=== PATIENT | male | born 1970 | race Caucasian/White ===

== ENCOUNTER → 2016-08-31 | Day surgery (SDC) | payer MEDICAID ==
[~2016-08-31] VITALS: Ht 167.6 cm; Wt 80.9 kg
[~2016-08-31] MED LIST: *ONDANSETRON 4 MG VIAL PERIprocedural Use ONLY ONE; *morphine SULFATE 8 MG/ML PERIprocedure ONLY ONE; AMLO10TA2 PO; ASPI-110 PO; BUME1TAB28 PO; BUPIVACAINE HCL PF 0.5% 30 ML VIAL ONE; BUTA1CAP PO; CHLORHEXIDINE GLUCONATE 2 % 1 PACK (2 CLOTHS) TOPICAL PRN; CLON.1 PO; CLON.5 PO; DO NOT ADM ANY ANTICOAGULANT DRUGS PRN; FAMO1TAB73 PO; FLUT1SPR5 EACH NARE; GELFOAM SIZE 100 ONE; GLIM4TAB PO; HEPA1000 IV; HEPARIN SODIUM - IV 10,000 UNITS/10 ML VIAL ONE; HEPARIN SODIUM - SQ 10,000 UNITS/ML VIAL ONE; LACTATED RINGER'S 1000 ML IV PRN; LANTUS2P SQ; LIPI40TA PO; LISI40TA PO; LORA-361 PO; METOPROLOL TARTRATE 25 MG TAB PO PRN; MONT10TA2 PO; NEOSTIGMINE 3 MG/3 ML SYR IV ONE; NEUR100C PO; OMEG100037 PO; ONDANSETRON HCL 4 MG/2 ML VIAL IV PUSH ONE; PHENYLEPH/NS 1000 MCG/10 ML SYR IV ONE; POVIDONE IODINE 5% (ANTISEPSIS KIT) 4 APPLICATIONS EACH NARE PRN; PROPOFOL 200 MG/20 ML AMP IV ONE; PROS5TAB PO; SODIUM CHLOR 0.9% 250 ML INJ 250 ML ONE; SODIUM CHLORID 0.9% 500 ML IV PRN; TAMS5CAP PO; TERA5CAP3 PO; THROMBIN (TOPICAL) 20,000 UNIT SPRAY KIT OTHER ONE; THROMBIN (TOPICAL) 5,000 UNIT VIAL ONE; TOPR100T PO; VANCOMYCIN HCL 1000 MG VIAL ONE; VITA100T15 PO; ePHEDrine/NS 25 MG/5 ML SYR IV ONE; fentaNYL CITRATE 250 MCG/5 ML AMP ONE; oxyCODONE/ACETAMINOPHEN 5 MG/325 MG TAB PO PRN
--- NOTE | 2016-08-31 10:12 | RADRPT ---
EXAM DATE/TIME: 08/31/2016 10:51 [place] COMPARISON: No previous studies available for comparison. INDICATIONS : Pre op to rule out pnuemonia, pnuemothorax or any communicable diseases. MEDICAL HISTORY : None. SURGICAL HISTORY : None. ENCOUNTER: Initial ACUITY: 1 day PAIN SCORE: 0/10 LOCATION: Bilateral chest FINDINGS: Portable AP view of the chest demonstrates a normal-sized cardiac silhouette. Right IJ line distal ti p is in the SVC. Right hemidiaphragm is elevated. There is mild atelectasis at the right lung base. N o pleural effusion, airspace consolidation, or pneumothorax identified. There is a calcified granulom a in the right midlung zone measuring approximately 5 mm. The bones and soft tissues demonstrate no a cute finding. CONCLUSION: No acute cardiopulmonary abnormality is identified. David Moss MD on August 31, 2016 at 10:10 Board Certified Radiologist. This report was verified electronically.
[2016-08-31 10:54] LABS: BLOOD, URINE TRACE (NEG); GLUCOSE,URINE 1000 mg/dL (NEG); HYALINE CAST, URINE 1 /lpf (RARE); KETONE, URINE NEG (NEG); NITRITE,URINE NEG (NEG); URINE COLOR LIGHT-YELLOW (YELLW/STRAW)
[2016-08-31 10:55] LABS: COMMENT (UR) CULT NOT INDICATED; CULTURE IF INDICATED CULT NOT INDICATED
[2016-08-31 10:55] LABS: AUTOMATED NEUTROPHIL # 4.4 TH/MM3 (1.8-7.7); BASOPHIL % 0.2 % (0.0-2.0); EOSINOPHIL # 0.3 TH/MM3 (0-0.4); EOSINOPHIL % 4.6 % (0.0-4.0); HEMATOCRIT 41.8 % (39.0-51.0); HEMO FLAGS DIFF FINAL; LYMPH % 23.6 % (9.0-44.0); LYMPHOCYTE # 1.7 TH/MM3 (1.0-4.8); MEAN CELL VOLUME 89.4 FL (80.0-100.0); MEAN CORPUSCULAR HEMOGLOBIN 28.8 PG (27.0-34.0); MEAN CORPUSCULAR HGB CONC 32.3 % (32.0-36.0); MONO % 11.2 % (0.0-8.0); NEUT % 60.4 % (16.0-70.0); PLATELET COUNT 159 TH/MM3 (150-450); RED BLOOD COUNT 4.67 MIL/MM3 (4.50-5.90); RED CELL DISTRIBUTION WIDTH 16.2 % (11.6-17.2); WHITE BLOOD COUNT 7.3 TH/MM3 (4.0-11.0)
[2016-08-31 10:58] LABS: APTT (PATIENT) 27.3 SEC (24.3-30.1); PROTHROMBIN TIME - PATIENT 11.2 SEC (9.8-11.6)
[2016-08-31 11:05] LABS: POTASSIUM 4.1 MEQ/L (3.5-5.1)
[2016-08-31] MEDS: INSULIN HUMAN REGULAR 1,000 UNITS/10 ML VIAL SQ PRN ×2 (11:05→11:48)
--- NOTE | 2016-08-31 11:29 | EKG ---
Date Performed: 08/31/2016 Time Performed: 09:42:08 PTAGE: 46 years EKG: Sinus rhythm POSSIBLE ANTERIOR MYOCARDIAL INFARCTION , OF INDETERMINATE AGE ABNORMAL ECG NO PREVIOUS TRACING DOCTOR: Alex Hanna Interpretating Date/Time 08/31/2016 11:29:09
--- NOTE | 2016-08-31 15:01 | HHI.PR ---
Immediate Post Op Note Procedure Date: Aug 31, 2016 Pre Op Diagnosis: ESRD, need for HD access Post Op Diagnosis: ESRD, need for HD access Surgeon: Franck Flores Allied Health Instructor(s): none Procedure: L brachiobasilic AVF (1st stage) Findings: 4mm artery, 3mm vein Additional Information: good Doppler signals at wrist at conclusion of case Complications: none apparent Specimen(s) removed: none Estimated blood loss: 20 mL Anesthesia: General Drains: None Fluids: 200 IVF Patient to: PACU Patient Condition: Good Date/Time of Procedure: SEE SURGICAL CARE RECORD Franck Flores MD Aug 31, 2016 15:01
[2016-08-31 16:40] VITALS: BP 164/81; PULSE 68; RESP 18; TEMP 97.8; O2SAT 96
--- NOTE | 2016-09-01 06:04 | MP ---
cc: GEOVANNA FLORES MD DATE OF SURGERY 08/31/2016 PREOPERATIVE DIAGNOSIS End-stage renal disease. Need for dialysis access. POSTOPERATIVE DIAGNOSIS End-stage renal disease. Need for dialysis access. PROCEDURE Left brachiobasilic arteriovenous fistula (first stage). ATTENDING SURGEON Geovanna Flores MD FOREST TECHNOLOGY PROFESSOR . ANESTHESIA General. INDICATIONS Mr. Carlson is a 46-year-old gentleman with end-stage renal disease who is currently dialyzing through a right chest catheter. He is taken to the operating room for surgical access. A preoperative imaging assessed his left basilic vein as his best conduit. DESCRIPTION OF PROCEDURE Informed consent was obtained from the patient. He was taken to the operating room and placed supine on the operating room table. An appropriate time-out was taken to identify the patient, the operative site and planned procedure. 1 gram of vancomycin was initiated prior to the skin incision, will be discontinued after a single preoperative dose. Vancomycin was chosen because of the patient's end-stage renal disease. Everyone in the room agreed with the time-out and we proceeded. Incision was made in the medial aspect of the upper arm, carried down through the subcutaneous tissue with electrocautery. The basilic vein was identified and dissected free for several cm, all branches ligated with 3-0 silk. The brachial artery was identified on the medial aspect of this incision, dissected free for several cm. The basilic vein was marked for orientation, clamped at a right angle distally, transected and the distal end was oversewn with 3-0 silk. The vein was distended and clamped with Yordan bulldog clamp. The patient was systemically heparinized with 3000 units of IV heparin. Proximal and distal control of the brachial artery was obtained with profunda clamps and a longitudinal arteriotomy was made with a 11 blade, continued with [place] scissors. The vein was spatulated and sewn end-to-side with running 6-0 Prolene sutures. At the completion, the wound was noted to be hemostatic. There was a nice thrill in the vein and a Doppler signal in the wrist. The wound was infiltrated with Marcaine and closed with 2-0 Polysorb, 3-0 Polysorb and 4-0 Monocryl. Sponge and needle counts were correct at the end of the case. I was present and scrubbed and performed the entire procedure. MD VY Wall/ANGEL /3:05 PM /5:48 AM
== END | disposition home or self-care (01) ==
LOC: HCVO 08:54 → EDUNIT# 13:00
PROVIDERS: ATTEND Surgery
DX: N18.6 End stage renal disease (principal); I12.0 Hypertensive chronic kidney disease with stage 5 chronic kidney disease or end stage renal disease; E11.9 Type 2 diabetes mellitus without complications
CPT/HCPCS: 01844; 36819; 71010; 80048; 81001; 82948; 85025; 85610; 85730; 86850; 86900; 86901; 93005; J1644; J1815; J2270; J2370; J2405; J2710; J3010; J3370; J7040; J7050

== ENCOUNTER 2016-10-19 05:15 | Observation (INO) | payer MEDICAID ==
[~2016-10-19] VITALS: Ht 167.6 cm; Wt 80.5 kg
[~2016-10-19 05:15] MED LIST changes: -*ONDANSETRON 4 MG VIAL PERIprocedural Use ONLY ONE; -*morphine SULFATE 8 MG/ML PERIprocedure ONLY ONE; -BUPIVACAINE HCL PF 0.5% 30 ML VIAL ONE; -CHLORHEXIDINE GLUCONATE 2 % 1 PACK (2 CLOTHS) TOPICAL PRN; -DO NOT ADM ANY ANTICOAGULANT DRUGS PRN; -GELFOAM SIZE 100 ONE; -HEPARIN SODIUM - IV 10,000 UNITS/10 ML VIAL ONE; -HEPARIN SODIUM - SQ 10,000 UNITS/ML VIAL ONE; -LACTATED RINGER'S 1000 ML IV PRN; -METOPROLOL TARTRATE 25 MG TAB PO PRN; -NEOSTIGMINE 3 MG/3 ML SYR IV ONE; -ONDANSETRON HCL 4 MG/2 ML VIAL IV PUSH ONE; -PHENYLEPH/NS 1000 MCG/10 ML SYR IV ONE; -POVIDONE IODINE 5% (ANTISEPSIS KIT) 4 APPLICATIONS EACH NARE PRN; -PROPOFOL 200 MG/20 ML AMP IV ONE; -SODIUM CHLOR 0.9% 250 ML INJ 250 ML ONE; -SODIUM CHLORID 0.9% 500 ML IV PRN; -THROMBIN (TOPICAL) 20,000 UNIT SPRAY KIT OTHER ONE; -THROMBIN (TOPICAL) 5,000 UNIT VIAL ONE; -VANCOMYCIN HCL 1000 MG VIAL ONE; -ePHEDrine/NS 25 MG/5 ML SYR IV ONE; -fentaNYL CITRATE 250 MCG/5 ML AMP ONE; -oxyCODONE/ACETAMINOPHEN 5 MG/325 MG TAB PO PRN
--- NOTE | 2016-10-19 07:23 | HHI.HP ---
History of Present Illness Chief Complaint: need for 2nd stage L UE AVF History of Present Illness 46 yo male with ESRD currently getting HD MWF via R chest catheter. Had L UE brachiobasilic AVF (1st stage) on August 31. Presents for elective 2nd stage. Duplex on Tue showed excellent diameters without any stenoses. Past/Family/Social History Past Medical History ESRD pneumonia HTN XOL DM Past Surgical History L UE brachiobasilic AVF B LE amputations Family History NC Home Medications Reported Medications Famotidine (Pepcid)40 Mg Tab40 Mg PO HS #30 TAB Ref 0 08/31/16 Terazosin 5 Mg Cap5 Mg PO HS #30 CAP Ref 0 08/31/16 Tamsulosin (Flomax)0.4 Mg Cap0.4 Mg PO HS #30 CAP Ref 0 08/31/16 Montelukast (Singulair)10 Mg Tab10 Mg PO HS #30 TAB Ref 0 08/31/16 Metoprolol Succinate ER 24 HR (Toprol XL)100 Mg Uen199 Mg PO DAILY #30 TAB Ref 0 08/31/16 Loratadine (Claritin)10 Mg Tab10 Mg PO DAILY Ref 0 08/31/16 Lisinopril 40 Mg Tab40 Mg PO DAILY #30 TAB Ref 0 08/31/16 Glimepiride 4 Mg Tab4 Mg PO AC BREAKFAST #60 TAB Ref 0 08/31/16 Gabapentin (Neurontin)100 Mg Qxg049 Mg PO TID #90 CAP Ref 0 08/31/16 Fluticasone Nasal [place] (Flonase Nasal [place])50 Mcg/Act Spray50 Mcg EACH NARE BID #1 BOTTLE Ref 0 08/31/16 [place]-3 Fatty Acids (Fish Oil 1000 mg)1 Cap Cap1,000 Cap PO DAILY 08/31/16 Finasteride (Proscar)5 Mg Tab5 Mg PO DAILY #30 TAB Ref 0 Do not crush. 08/31/16 Cyanocobalamin (Vitamin B12)100 Mcg Mph556 Mcg PO DAILY #1 BOTTLE 08/31/16 Clonidine (Catapres)0.1 Mg Tab0.1 Mg PO BID #60 TAB Ref 0 08/31/16 Clonazepam (Klonopin)0.5 Mg Tab0.5 Mg PO HS #60 TAB Ref 0 08/31/16 Rukryczxav-Jgfvxwvieffpk-Ztlhazlc (Fioricet)50-300-40 Mg Cap1 Cap PO Q4H PRN ( HEADACHE) Ref 0 08/31/16 Bumetanide (Bumex)2 Mg Tab2 Mg PO DAILY Ref 0 08/31/16 Atorvastatin (Lipitor)40 Mg Tab40 Mg PO HS #30 TAB Ref 0 08/31/[address] (Aspirin 81)81 Mg Tabdr81 Mg PO DAILY Ref 0 08/31/16 Amlodipine 10 Mg Tab10 Mg PO DAILY #30 TAB Ref 0 08/31/16 Heparin Sodium (Porcine) (Heparin Sodium)1,000 Unit/Ml [id number] Units IV 08/31/16 Insulin Glargine Inj (Lantus Inj)1,000 Unit/10 Ml Vial29 Units SQ HS Ref 0 08/31/16 Coded Allergies: No Known Allergies (Unverified , 08/31/16) Review of Systems Constitutional: DENIES: Fever, Chills, Change in appetite Respiratory: DENIES: Shortness of breath Physical Exam Neuro: Resting comfortably, no distress, pleasant and conversant (Latvian only with limited Palauan) HEENT: NC/AT; anicteric sclera Neck: no JVD Heart: reg rate Lungs: nonlabored breathing Vascular: L UE with healed incision; + thrill. Good posting clerk strength pending U/S from Tue reviewed again this morning. Assessment and Plan Plan Needs elective 2nd stage access; no interval change in history that would preclude OR 1. labs pending 2. To OR 3. Arm marked 4. POA with HD tomorrow, then D/C after HD Franck Flores MD October 19, 2016 07:23
[2016-10-19 07:29] VITALS: BP 158/79; PULSE 72; RESP 18; TEMP 98.5; O2SAT 95
[2016-10-19] MEDS ORDERED: INSULIN HUMAN REGULAR 1,000 UNITS/10 ML VIAL ONE (07:56)
[2016-10-19] MEDS ORDERED: METOPROLOL TARTRATE 25 MG TAB ONE (07:57)
[2016-10-19 08:07] LABS: AUTOMATED NEUTROPHIL # 4.3 TH/MM3 (1.8-7.7); BASOPHIL % 0.3 % (0.0-2.0); EOSINOPHIL # 0.2 TH/MM3 (0-0.4); EOSINOPHIL % 2.8 % (0.0-4.0); HEMATOCRIT 34.6 % (39.0-51.0); HEMO FLAGS DIFF FINAL; LYMPH % 24.2 % (9.0-44.0); LYMPHOCYTE # 1.7 TH/MM3 (1.0-4.8); MEAN CELL VOLUME 88.3 FL (80.0-100.0); MEAN CORPUSCULAR HEMOGLOBIN 28.7 PG (27.0-34.0); MEAN CORPUSCULAR HGB CONC 32.5 % (32.0-36.0); MONO % 10.8 % (0.0-8.0); NEUT % 61.9 % (16.0-70.0); PLATELET COUNT 139 TH/MM3 (150-450); RED BLOOD COUNT 3.91 MIL/MM3 (4.50-5.90); RED CELL DISTRIBUTION WIDTH 14.9 % (11.6-17.2)
[2016-10-19 08:13] LABS: INTERNATIONAL NORMALIZED RATIO 1.4 RATIO
[2016-10-19] MEDS ORDERED: SODIUM CHLORIDE 0.9% FLUSH 10 ML FLUSH IV FLUSH PRN ×2 (08:15→16:00)
[2016-10-19] MEDS ORDERED: DEXTROSE 50% IN WATER 50 ML VIAL(D50) IV PRN (08:30)
[2016-10-19] MEDS ORDERED: GLUCAGON 1 MG/ML VIAL OTHER PRN (08:30)
[2016-10-19 08:33] LABS: BICARBONATE 28.9 MEQ/L (21.0-32.0); POTASSIUM 4.4 MEQ/L (3.5-5.1)
[2016-10-19] MEDS ORDERED: FATTY ACIDS PO SCH (09:00)
[2016-10-19] MEDS ORDERED: OMEGA PO SCH (09:00)
[2016-10-19] MEDS ORDERED: THROMBIN (TOPICAL) 20,000 UNIT SPRAY KIT ONE (09:14)
[2016-10-19] MEDS ORDERED: VANCOMYCIN HCL 1000 MG VIAL ONE (09:15)
[2016-10-19] MEDS ORDERED: HEPARIN SODIUM - IV 10,000 UNITS/10 ML VIAL ONE (09:15)
[2016-10-19] MEDS ORDERED: BUPIVACAINE/EPINEPHRINE 0.25% PF 10 ML VIAL ONE (09:15)
[2016-10-19] MEDS ORDERED: GABAPENTIN 100 MG CAP PO SCH (10:00)
[2016-10-19] MEDS: FINASTERIDE 5 MG TAB PO SCH (10:00)
[2016-10-19] MEDS: CYANOCOBALAMIN 100 MCG TAB PO SCH (10:00)
[2016-10-19] MEDS: LORATADINE 10 MG TAB PO SCH (10:00)
[2016-10-19] MEDS: cloNIDine HCL 0.1 MG TAB PO SCH ×2 (10:00→21:29)
[2016-10-19] MEDS ORDERED: BUTALBITAL ACETAMINOPHEN CAFFEINE PO PRN (10:00)
[2016-10-19] MEDS: GABAPENTIN 100 MG CAP PO SCH ×2 (10:00→21:29)
[2016-10-19] MEDS ORDERED: PROTAMINE SULFATE 50 MG/5 ML VIAL ONE (10:42)
--- NOTE | 2016-10-19 11:12 | HHI.PR ---
Immediate Post Op Note Procedure Date: October 19, 2016 Pre Op Diagnosis: ESRD, need for HD access Post Op Diagnosis: ESRD, need for HD access Surgeon: Franck Flores Windows Admin(s): Aaron Barron Procedure: L brachiobasilic AVF Findings: 5-6mm vein; Additional Information: + Doppler signal in wrist at end of case Complications: none apparent Specimen(s) removed: none Estimated blood loss: 30mL Anesthesia: LMA Drains: NICANOR Fluids: 300 mL x'oid IVF Patient to: PACU Patient Condition: Good Implant/Devices: SEE IMPLANT LOG (if applicable) Date/Time of Procedure: SEE SURGICAL CARE RECORD Franck Flores MD October 19, 2016 11:12
[2016-10-19] MEDS ORDERED: DO NOT ADM ANY ANTICOAGULANT DRUGS PRN (11:20)
[2016-10-19] MEDS ORDERED: *morphine SULFATE 8 MG/ML PERIprocedure ONLY ONE (11:32)
[2016-10-19] MEDS ORDERED: *HYDROmorphone PF 1 MG VIAL PERIprocedural Use ONLY ONE ×2 (11:51→12:43)
[2016-10-19] MEDS ORDERED: PROPOFOL 200 MG/20 ML AMP IV ONE (12:00)
[2016-10-19] MEDS ORDERED: ePHEDrine/NS 25 MG/5 ML SYR IV ONE (12:00)
[2016-10-19] MEDS: INSULIN NovoLIN REGULAR SUPPLEMENTAL SCALE SQ SCH ×3 (12:00→21:24)
[2016-10-19] MEDS ORDERED: PHENYLEPH/NS 1000 MCG/10 ML SYR IV ONE (12:00)
[2016-10-19] MEDS ORDERED: ONDANSETRON HCL 4 MG/2 ML VIAL IV PUSH ONE (12:00)
[2016-10-19] MEDS: METOPROLOL SUCCINATE 50 MG EXTENDED RELEASE TAB PO SCH (13:00)
[2016-10-19] MEDS: LISINOPRIL 20 MG TAB PO SCH (13:00)
[2016-10-19] MEDS: BUMETANIDE 1 MG TAB PO SCH (13:00)
[2016-10-19] MEDS: FAMOTIDINE 20 MG TAB PO SCH ×2 (13:00→21:31)
[2016-10-19] MEDS: ASPIRIN 81 MG CHEW TAB PO SCH (13:00)
[2016-10-19] MEDS ORDERED: *PROMETHAZINE 25 MG/ML VIAL PERIprocedural use ONLY ONE (13:35)
[2016-10-19] MEDS ORDERED: SODIUM CHLOR 0.9% 1000 ML INJ 1,000 ML IV PRN ×3 (15:57)
[2016-10-19] MEDS: HYDROmorphone HCL 2 MG TAB PO PRN ×2 (15:58→21:31)
[2016-10-19] MEDS ORDERED: GELATIN 12 MM/7 MM FOAM TOP PRN (16:00)
[2016-10-19] MEDS ORDERED: ALBUMIN HUMAN 25% 25 GM/100 ML BAGP IV PRN (16:00)
[2016-10-19] MEDS ORDERED: diphenhydrAMINE HCL 25 MG CAP PO PRN (16:00)
[2016-10-19] MEDS ORDERED: EPOETIN ALFA 4,000 UNITS/ML VIAL IV PRN (16:00)
[2016-10-19] MEDS ORDERED: cloNIDine HCL 0.1 MG TAB PO PRN (16:00)
[2016-10-19] MEDS ORDERED: NITROGLYCERIN 0.4 MG SL 25 TABS/BTL SL PRN (16:00)
[2016-10-19] MEDS ORDERED: ACETAMINOPHEN 325 MG TAB PO PRN (16:00)
[2016-10-19] MEDS ORDERED: ONDANSETRON HCL 4 MG/2 ML VIAL IV PRN (16:00)
[2016-10-19] MEDS ORDERED: GENTAMICIN SULFATE (DIALYSIS USE ONLY) 20 MG/2 ML VIAL IV PRN (16:00)
[2016-10-19] MEDS ORDERED: HEPARIN SODIUM - IV 10,000 UNITS/10 ML VIAL PRN (16:00)
[2016-10-19] MEDS ORDERED: HEPARIN SODIUM - IV 10,000 UNITS/10 ML VIAL IVF PRN (16:00)
[2016-10-19] MEDS ORDERED: MANNITOL 12.5 GM/50 ML VIAL IV PRN (16:00)
--- NOTE | 2016-10-19 17:26 | MB ---
cc: JENN BRAXTON MD DATE OF CONSULTATION 10/19/16 REASON FOR CONSULTATION End-stage renal disease on hemodialysis for management. HISTORY OF PRESENT ILLNESS This is a 46-year-old male with past medical history of hypertension, diabetes mellitus, chronic anemia, end-stage renal disease on hemodialysis three times per week who was admitted for AV fistula surgery. I was called to see the patient for management of dialysis. The patient does not speak American and is not a very good historian. Most of the history was taken from the patient's chart, according to which he was admitted by Dr. Flores for left arm AV fistula which was done this morning and he is kept here now for observation. The patient has some pain at the site of the fistula. He has left brachial basilic AV fistula done and currently has a drain at the site of the fistula surgery. He denies any shortness of breath. He is with nasal cannula. No nausea or vomiting. PAST MEDICAL HISTORY 1. Hypertension, 2. Diabetes mellitus, 3. Chronic anemia, 4. Peripheral vascular disease, 5. End-stage renal disease on hemodialysis three times per week. PAST SURGICAL HISTORY 1. Bilateral below-knee amputation 2. Left arm AV fistula done today. REVIEW OF SYSTEMS The patient denies any headache, dizziness or blurring of vision. No history of fever. No sore throat. No shortness of breath or chest pain. No nausea or vomiting, no abdominal pain. He has some pain in the left arm at the site of the fistula. SOCIAL HISTORY The patient lives in [place] and came here for the surgery. FAMILY HISTORY Not available. ALLERGIES NO KNOWN DRUG ALLERGIES. MEDICATIONS Currently he is on for following medication 1. Famotidine 10 mg b.i.d. 2. Clonidine 0.1 mg b.i.d. 3. Gabapentin 100 mg b.i.d. 4. Aspirin 81 mg daily 5. Norvasc 10 mg once a day. 6. Bumex 2 mg daily. 7. Vitamin B12 100 mcg once a day 8. Proscar 5 mg daily. 9. Claritin 10 mg once a day. 10. Toprol 100 mg daily. 11. Lisinopril 40 mg once a day. 12. Lipitor 40 mg q.h.s. 13. Klonopin 0.5 mg q.h.s. 14. Singulair 10 mg q.h.s. 15. Flomax 0.4 mg q.h.s. 16. Hytrin 5 mg q.h.s. 17. Heparin 5000 units subcu q. 8-hour. 18. Insulin sliding scale, 19. Percocet as needed. 20. Roxicodone as needed. 21. Dilaudid as needed. PHYSICAL EXAMINATION GENERAL: The patient is awake, alert. He is not in acute distress. VITAL SIGNS: Last blood pressure 157/74, temperature 98.2, oxygen saturation 99% on 2 liters nasal cannula. HEENT: Pupils equally reacting to light. Nonicteric sclerae, conjunctivae pale. NECK: Supple. JVD is not elevated. LUNGS: The patient has bilateral good air entry with occasional wheezing. HEART: S1, S2 regular rhythm. ABDOMEN: Soft, lax. There is no tenderness. Bowel sounds positive. EXTREMITIES: His left arm has AV fistula surgery with drain in place and has good bruit. Left hand is a little bit swollen, but there is no pain or decreased temperature. LABORATORY DATA WBC count is 7.0, hemoglobin 11.2, platelet count of 139. Sodium 136, potassium 4.4, chloride 97, bicarb 28.9, BUN 27, creatinine 4.7, glucose 345, INR is 1.4. Urinalysis showing protein of 300. IMAGING STUDIES The patient had a chest x-ray done on 08/31 which shows lung robles clear. ASSESSMENT/PLAN 1. End-stage renal disease on hemodialysis. 2. Post stain fistula surgery 3. Diabetes mellitus uncontrolled. 4. Hypertension 5. History of hyperlipidemia. The patient has AV fistula surgery done. He has been on hemodialysis Tuesday, Tuesday and Tuesday. His labs are reviewed. There is no urgent need for dialysis today. I will arrange for his hemodialysis tomorrow. We will remove 2-3 liters. I will also give him Epogen at 4000 with dialysis. If he is stable possibly he will be discharged tomorrow. Thank you for the consultation and I will follow the patient while he is in the hospital. MD KELLI Reddy/ /3:56 PM /5:07 PM
[2016-10-19 17:28] LABS: BICARBONATE 29.7 MEQ/L (21.0-32.0); POTASSIUM 4.6 MEQ/L (3.5-5.1)
[2016-10-19 21:00] VITALS: BP 149/71; PULSE 73; RESP 17; TEMP 95.9; O2SAT 100
[2016-10-19] MEDS ORDERED: TERAZOSIN HCL 5 MG CAP PO SCH (21:00)
[2016-10-19] MEDS ORDERED: ATORVASTATIN 40 MG TAB PO SCH (21:00)
[2016-10-19] MEDS ORDERED: MONTELUKAST SODIUM 10 MG TAB PO SCH (21:00)
[2016-10-19] MEDS ORDERED: TAMSULOSIN HCL 0.4 MG CAP PO SCH (21:00)
[2016-10-19] MEDS ORDERED: clonazePAM 0.5 MG TAB PO SCH (21:00)
--- NOTE | 2016-10-19 22:50 | MP ---
cc: GEOVANNA FLORES MD DATE OF SURGERY 10/19/16 PREOPERATIVE DIAGNOSIS End-stage renal disease, needs dialysis access. POSTOPERATIVE DIAGNOSIS End-stage renal disease, needs dialysis access. PROCEDURE Left upper extremity brachial basilic arteriovenous fistula SURGEON Mya Flores MD REPORTS ANALYST Dewayne Barron ANESTHESIA General. INDICATIONS Mr. Monroe is a 46 year old gentleman with end-stage renal disease who is currently dialyzing Mondays, Tuesday and Fridays through a right tunnel chest catheter. He had a left brachiobasilic first stage arteriovenous fistula and this has matured. He is taken to the operating room for second stage. Intraoperatively, the fistula was transected, transposed and reanastomosed to brachial artery. PROCEDURE IN DETAIL Informed consent was obtained from the patient and he was taken to the operating room and placed supine on the operating table and an appropriate time out was taken to ensure the patient's identity, the operative site and the planned procedure. One gram of visual acuity was initiated prior to skin incision, will be discontinued after a single preoperative dose. Vancomycin was chosen because of the patient's end-stage renal disease. Everyone in the room agreed with the time out and we proceeded. After placement of LMA, his left arm was prepped and draped and incision was made on the medial side of the distal upper arm and carried down to subcutaneous tissue with electrocautery. Basilic vein was identified and dissected free from near the anastomosis back to the axillary vein. Side branches were ligated with 3-0 silk. The vein was marked for orientation, clamped distally, transected and distal end was ligated with 3-0 silk. A Yordan bulldog was placed in the proximal aspect and the curved tunnel was created on the anterior aspect of the arm and the vein was tunneled through this, taking caution not to twist it. The brachial artery was identified in the medial aspect of the incision dissected free for several centimeters. The patient was systemically heparinized with 3000 units of IV heparin. Proximal and distal control of branchial artery were obtained with profunda clamps and a longitudinal arteriotomy was made with an 11 blade, extended with [place] scissors. The vein was cut to an appropriate length, spatulated and sewn end to side to the brachial artery with running 5-0 Prolene suture. At the completion it was flushed, noted to be hemostatic. Clamps were released. There was a nice thrill in the fistula and a Doppler signal in the wrist. The heparin was reversed with protamine. The wound was made hemostatic with Surgicel and spray thrombin. The wound was infiltrated with 0.5% Marcaine with epinephrine and the 10 flat [place] drain was placed through a separate stab incision and secured to the skin with a 2-0 nylon. The wound was then closed with 2-0 Polysorb, 3-0 Polysorb and 4-0 Monocryl. The sponge and needle counts were correct at the end of the case. I was present and scrubbed and performed the entire procedure. MD VY Wall/ /11:18 AM /10:37 PM MTDD
[2016-10-20] VITALS: BP 130/68; PULSE 71; RESP 17; TEMP 96.8; O2SAT 100
[2016-10-20] MEDS: HEPARIN SODIUM - SQ 10,000 UNITS/ML VIAL SQ SCH ×2 (05:28→15:16)
[2016-10-20] MEDS: HYDROmorphone HCL 2 MG TAB PO PRN ×3 (05:29→15:16)
[2016-10-20 05:46] LABS: HEMATOCRIT 35.4 % (39.0-51.0); MEAN CELL VOLUME 90.2 FL (80.0-100.0); MEAN CORPUSCULAR HEMOGLOBIN 29.3 PG (27.0-34.0); MEAN CORPUSCULAR HGB CONC 32.5 % (32.0-36.0); PLATELET COUNT 125 TH/MM3 (150-450); RED BLOOD COUNT 3.92 MIL/MM3 (4.50-5.90); RED CELL DISTRIBUTION WIDTH 15.7 % (11.6-17.2); REVIEW FLAG FINAL; WHITE BLOOD COUNT 8.9 TH/MM3 (4.0-11.0)
[2016-10-20] MEDS: INSULIN NovoLIN REGULAR SUPPLEMENTAL SCALE SQ SCH (06:15)
[2016-10-20 06:25] LABS: BICARBONATE 26.3 MEQ/L (21.0-32.0); POTASSIUM 4.5 MEQ/L (3.5-5.1)
--- NOTE | 2016-10-20 07:20 | PD.VS.PN ---
Subjective POD #: 1 Procedure(s): L brachiobasilic AVF Subjective/Hospital Course no problems overnight; pain controlled Objective Vitals/I&O Date Time Temp Pulse Resp B/P Pulse Ox O2 Delivery O2 Flow Rate FiO2 10/20/16 00:00 96.8 71 17 130/68 100 10/19/16 21:00 95.9 73 17 149/71 100 10/19/16 18:42 Nasal Cannula 2.00 10/19/16 13:30 98.0 74 14 148/67 96 Nasal Cannula 2 10/19/16 13:15 71 15 163/78 95 Nasal Cannula 2 10/19/16 13:00 72 16 143/73 94 Nasal Cannula 2 10/19/16 12:45 73 15 137/65 93 Nasal Cannula 2 10/19/16 12:30 73 15 145/70 95 Nasal Cannula 2 10/19/16 12:15 74 14 146/69 96 Nasal Cannula 2 10/19/16 12:00 77 15 144/68 96 Nasal Cannula 2 10/19/16 11:45 70 14 152/70 96 Nasal Cannula 2 10/19/16 11:30 74 15 158/77 96 Nasal Cannula 2 10/19/16 11:24 98.2 75 14 157/74 97 Nasal Cannula 2 10/19/16 07:29 98.5 72 18 158/79 95 Exam: L UE incision c/d/i + thrill Hand ok serous drainage in NICANOR Laboratory Laboratory Tests Test 10/19/16 10/19/16 10/20/16 07:45 16:45 05:00 White Blood Count 7.0 8.9 Red Blood Count 3.91 3.92 Hemoglobin 11.2 11.5 Hematocrit 34.6 35.4 Mean Corpuscular Volume 88.3 90.2 Mean Corpuscular Hemoglobin 28.7 29.3 Mean Corpuscular Hemoglobin 32.5 32.5 Concent Red Cell Distribution Width 14.9 15.7 Platelet Count 139 125 Mean Platelet Volume 10.0 9.7 Neutrophils (%) (Auto) 61.9 Lymphocytes (%) (Auto) 24.2 Monocytes (%) (Auto) 10.8 Eosinophils (%) (Auto) 2.8 Basophils (%) (Auto) 0.3 Neutrophils # (Auto) 4.3 Lymphocytes # (Auto) 1.7 Monocytes # (Auto) 0.8 Eosinophils # (Auto) 0.2 Basophils # (Auto) 0.0 CBC Comment DIFF FINAL Differential Comment Prothrombin Time 16.0 Prothromb Time International 1.4 Ratio Sodium Level 136 141 137 Potassium Level 4.4 4.6 4.5 Chloride Level 97 103 100 Carbon Dioxide Level 28.9 29.7 26.3 Anion Gap 10 8 11 Blood Urea Nitrogen 27 29 30 Creatinine 4.71 5.33 5.70 Estimat Glomerular Filtration 13 12 11 Rate Random Glucose 345 115 226 Calcium Level 8.9 8.5 8.8 Blood Type O POSITIVE Antibody Screen POSITIVE Antibody Identification Anti-S Antigen Identification S Antigen - NEGATIVE Crossmatch Leukocyte-Reduced Red Blood Cells Blood Bank Comment Assessment and Plan Plan Patent AVF 1. Drain d/c'ed today 2. HD today 3. D/C after HD Franck Flores MD October 20, 2016 07:20
--- NOTE | 2016-10-20 07:23 | PD.VS.DC ---
Discharge Summary Admission Date: October 19, 2016 at 08:18 Discharge Date: October 20, 2016 Admission Diagnosis: (1) ESRD (end stage renal disease) on dialysis Discharge Diagnosis: (1) ESRD (end stage renal disease) on dialysis Status: Acute Brief History from admission 46 yo male with ESRD currently getting HD MWF via R chest catheter. Had L UE brachiobasilic AVF (1st stage) on August 31. Presents for elective 2nd stage. Duplex on Tue showed excellent diameters without any stenoses. Procedure(s): L brachiobasilic AVF Significant Findings Laboratory Tests Test 10/19/16 10/19/16 10/20/16 07:45 16:45 05:00 Red Blood Count 3.91 MIL/MM3 3.92 MIL/MM3 (4.50-5.90) (4.50-5.90) Hemoglobin 11.2 GM/DL 11.5 GM/DL (13.0-17.0) (13.0-17.0) Hematocrit 34.6 % 35.4 % (39.0-51.0) (39.0-51.0) Platelet Count 139 TH/MM3 125 TH/MM3 (150-450) (150-450) Monocytes (%) (Auto) 10.8 % (0.0-8.0) Prothrombin Time 16.0 SEC (9.8-11.6) Chloride Level 97 MEQ/L (98-107) Blood Urea Nitrogen 27 MG/DL (7-18) 29 MG/DL (7-18) 30 MG/DL (7-18) Creatinine 4.71 MG/DL 5.33 MG/DL 5.70 MG/DL (0.60-1.30) (0.60-1.30) (0.60-1.30) Estimat Glomerular Filtration 13 ML/MIN (>89) 12 ML/MIN (>89) 11 ML/MIN (>89) Rate Random Glucose 345 MG/DL 115 MG/DL 226 MG/DL (74-106) (74-106) (74-106) Antibody Screen POSITIVE Hospital Course: Pt admitted post-operatively and did well overnight. Hand ok; + thrill. NICANOR drain d/c'ed and anticipate d/c POD#1 (today) after HD. Discharge Condition: Good Discharge Disposition: Discharge Home Discharge Instructions: Ok to shower tomorrow (POD#2). Normal activity on L UE except no BP, IV, needlesticks Continue to use catheter for now until AVF cleared as outpatient in clinic My office will call to schedule f/u appt time on November 05. Any questions or concerns: Call [facility] [phone] Franck Flores MD October 20, 2016 07:23
[2016-10-20 08:00] VITALS: BP 114/60; PULSE 76; RESP 18; TEMP 98.9; O2SAT 95
[2016-10-20 08:23] VITALS: O2SAT 96
[2016-10-20] MEDS: LORATADINE 10 MG TAB PO SCH (08:44)
[2016-10-20] MEDS: GABAPENTIN 100 MG CAP PO SCH (08:44)
[2016-10-20] MEDS: LISINOPRIL 20 MG TAB PO SCH (08:45)
[2016-10-20] MEDS: FAMOTIDINE 20 MG TAB PO SCH (08:45)
[2016-10-20] MEDS: ASPIRIN 81 MG CHEW TAB PO SCH (08:45)
[2016-10-20] MEDS: cloNIDine HCL 0.1 MG TAB PO SCH (08:45)
[2016-10-20] MEDS: FINASTERIDE 5 MG TAB PO SCH (08:46)
[2016-10-20] MEDS: METOPROLOL SUCCINATE 50 MG EXTENDED RELEASE TAB PO SCH (08:46)
[2016-10-20] MEDS: BUMETANIDE 1 MG TAB PO SCH (08:46)
[2016-10-20] MEDS: CYANOCOBALAMIN 100 MCG TAB PO SCH (08:46)
--- NOTE | 2016-10-20 10:57 | HHI.NPPN ---
Subjective General Problems: Anemia, Hypertension Renal Failure: End Stage Renal Disease History of Present Illness 46-year-old male with past medical history of hypertension, diabetes mellitus, chronic anemia, end-stage renal disease on hemodialysis three times per week who was admitted for AV fistula surgery. I was called to see the patient for management of dialysis. Patient has been on HD MWF in [place], [place]. Additional Remarks Patient is alert, no SOB, has mild pain at site of AVF. Review of Systems General Constitutional: Fatigue Cardiovascular Cardiac: KEITA Objective Data Data 10/19/16 10/20/16 19:00 07:00 Intake Total 350 ml 480 ml Output Total 30 ml 60 ml Balance 320 ml 420 ml Intake Oral 480 ml IV Total 50 ml Other 300 ml Output Drainage Total 60 ml Estimated Blood Loss 30 ml # Voids 0 Vital Signs Date Time Temp Pulse Resp B/P Pulse Ox O2 Delivery O2 Flow Rate FiO2 10/20/16 08:23 96 Nasal Cannula 2.00 10/20/16 08:00 98.9 76 18 114/60 95 10/20/16 00:00 96.8 71 17 130/68 100 10/19/16 21:00 95.9 73 17 149/71 100 10/19/16 18:42 Nasal Cannula 2.00 10/19/16 13:30 98.0 74 14 148/67 96 Nasal Cannula 2 10/19/16 13:15 71 15 163/78 95 Nasal Cannula 2 10/19/16 13:00 72 16 143/73 94 Nasal Cannula 2 10/19/16 12:45 73 15 137/65 93 Nasal Cannula 2 10/19/16 12:30 73 15 145/70 95 Nasal Cannula 2 10/19/16 12:15 74 14 146/69 96 Nasal Cannula 2 10/19/16 12:00 77 15 144/68 96 Nasal Cannula 2 10/19/16 11:45 70 14 152/70 96 Nasal Cannula 2 10/19/16 11:30 74 15 158/77 96 Nasal Cannula 2 10/19/16 11:24 98.2 75 14 157/74 97 Nasal Cannula 2 -: 10/20/16 0500 10/20/16 0500 Physical Exam General Appearance: No Acute Distress, Comfortable Eyes Eye Exam: Pupils Equal Throat Throat Exam: Oral Mucosa Lane & Moist Pulmonary Resp Exam: Clear Bilaterally, Breath Sounds Equal, No Distress, Decreased Bases Cardiology CV Exam: Regular, Normal Sinus Rhythm Gastrointestinal/Abdomen GI Exam: Soft, Non-Tender, Bowel Sounds Present Extremeties Extremeties Remarks Bilateral BKA, and has AVF in left arm with good Bruit. Neurologic Neuro Exam: Alert, Awake Psychiatric Psych Exam: Appropriate Responses Assessment/Plan Assessment Summary: Anemia of CKD, Hypertension, End Stage Renal Disease Problem List: (1) ESRD (end stage renal disease) on dialysis (2) Hypertension (3) Diabetes mellitus (4) AVF (arteriovenous fistula) Plan Patient has AVF done, Has good Bruit, no signs of steal. BS is better. Hgb. is stable. HD will be today in the afternoon. Possible D/C after HD. Problem Qualifiers (1) Diabetes mellitus: Robert Pedraza MD October 20, 2016 10:57
== END 2016-10-20 16:10 | disposition home or self-care (01) ==
LOC: HSDC 05:15 → HSDI 08:18 → N07A 14:12
PROVIDERS: ADMIT Surgery; ATTEND Surgery
DX: E11.22 Type 2 diabetes mellitus with diabetic chronic kidney disease (principal); E11.65 Type 2 diabetes mellitus with hyperglycemia; I12.0 Hypertensive chronic kidney disease with stage 5 chronic kidney disease or end stage renal disease; N18.6 End stage renal disease; D63.1 Anemia in chronic kidney disease; E11.42 Type 2 diabetes mellitus with diabetic polyneuropathy; Z99.2 Dependence on renal dialysis; E78.5 Hyperlipidemia, unspecified; I73.9 Peripheral vascular disease, unspecified; I25.10 Atherosclerotic heart disease of native coronary artery without angina pectoris; J44.9 Chronic obstructive pulmonary disease, unspecified; E66.9 Obesity, unspecified; Z68.28 Body mass index [BMI] 28.0-28.9, adult; Z89.512 Acquired absence of left leg below knee; Z89.511 Acquired absence of right leg below knee; E78.00 Pure hypercholesterolemia, unspecified; Z79.82 Long term (current) use of aspirin; Z79.4 Long term (current) use of insulin
CPT/HCPCS: 01844; 36819; 76937; 80048; 82948; 85025; 85027; 85610; 86077; 86850; 86870; 86900; 86901; 86902; 86920; 86922; 90935; 96372; 96374; 96375; G0378; J1170; J1644; J1815; J2270; J2370; J2405; J2550; J2720; J3010; J3370; Q4081; G0257